=== PATIENT | female | born 1945 | race Asian ===

== ENCOUNTER 2017-10-13 08:04 | Emergency (ER) | payer OTHER ==
[~2017-10-13] VITALS: Ht 160 cm; Wt 69.5 kg
[2017-10-13 09:24] LABS: BASOPHILS # (AUTO) 0.03 K/uL (0.00-0.20); BASOPHILS % (AUTO) 0.4 % (0.0-2.0); EOSINOPHILS # (AUTO) 0.03 K/uL (0.00-0.70); EOSINOPHILS % (AUTO) 0.44 % (1.0-6.0); HEMATOCRIT 31.2 % (36-46); HEMOGLOBIN 10.3 g/dL (12.0-16.0); LYMPHOCYTES # (AUTO) 1.6 K/uL (1.0-4.8); LYMPHOCYTES % (AUTO) 20.8 % (22.0-44.0); MEAN CORPUSCULAR HEMOGLOBIN 29.6 pg (26.0-34.0); MEAN CORPUSCULAR VOLUME 90 fL (80-100); MONOCYTES # (AUTO) 0.3 K/uL (0.1-1.0); MONOCYTES % (AUTO) 3.2 % (2.0-9.0); NEUTROPHILS # (AUTO) 5.8 K/uL (1.8-7.7); NEUTROPHILS % (AUTO) 75.1 % (40.0-70.0); PLATELET COUNT (AUTO) 290 K/uL (150-450); RED BLOOD CELL COUNT(AUTO) 3.47 MIL/uL (4.00-5.20); RED CELL DISTRIBUTION WIDTH 15.5 % (11.5-14.5)
[2017-10-13 09:35] LABS: PROTHROMBIN TIME 10.6 SEC (9.4-11.6)
[2017-10-13 09:41] LABS: APPEARANCE,URINE CLEAR (CLEAR); BILIRUBIN,URINE NEGATIVE (NEGATIVE); GLUCOSE, URINE (UA) NEGATIVE (NEGATIVE); KETONES,URINE NEGATIVE (NEGATIVE); LEUKOCYTE ESTERASE ,URINE NEGATIVE (NEGATIVE); NITRATE,URINE NEGATIVE (NEGATIVE); OCCULT BLOOD,URINE SMALL (NEGATIVE); PROTEIN,URINE TRACE (NEGATIVE); UROBILINOGEN,URINE 0.2 mg/dL (<=1.0)
[2017-10-13 09:42] LABS: ANION GAP 6 mmol/L (8-16); CALCIUM, TOTAL 8.9 mg/dL (8.8-10.5); CARBON DIOXIDE 26 mmol/L (22-29); CHLORIDE 101 mmol/L (98-107); CREATININE 1.45 mg/dL (0.60-1.30); GLOMERULAR FILTR. RATE CALC 35 mL/min (>60); GLUCOSE,RANDOM 128 mg/dL (70-110); POTASSIUM 3.5 mmol/L (3.5-5.1); SODIUM SERUM 133 mmol/L (136-145); UREA NITROGEN, BLOOD 23 mg/dL (7-18)
[2017-10-13 09:53] LABS: B-TYPE NATRIURETIC PEPTIDE 45 pg/mL (0-100)
[2017-10-13 10:09] LABS: ALANINE AMINOTRANSFERASE 13 U/L (12-78); ALBUMIN 3.3 g/dL (3.4-5.0); ALKALINE PHOSPHATASE 75 U/L (46-116); ASPARTATE AMINOTRANSFERASE 15 U/L (15-37); BILIRUBIN,TOTAL 0.2 mg/dL (0.1-1.0); CREATINE KINASE MB 0.7 ng/mL (0-5); CREATINE KINASE, TOTAL 80 U/L (26-192); TOTAL PROTEIN, SERUM 10.1 g/dL (6.4-8.2)
[2017-10-13] MEDS ORDERED: SODIUM CHLORIDE 0.9% 1,000 ML IV ONE (10:15)
[2017-10-13 10:19] LABS: BACTERIA,URINE None Seen /HPF (None Seen); SQUAMOUS EPITHELIAL CELL,UR Few /LPF (None Seen); WBC,URINE 0-2 /HPF (0-5)
[2017-10-13 11:43] VITALS: BP 136/56
== END 2017-10-13 12:17 | disposition home or self-care (01) ==
LOC: EMS 08:06
DX: R42 Dizziness and giddiness (principal); R11.0 Nausea
CPT/HCPCS: 36415; 71045; 76700; 80053; 81001; 82550; 82553; 83880; 84484; 85025; 85610; 85730; 93005; 96360; 96361; 99285; J7030

== ENCOUNTER 2024-10-14 15:30 | Emergency (ER) | payer MEDICAID, OTHER ==
[~2024-10-14] VITALS: Ht 160 cm; Wt 65.0 kg
[2024-10-14 15:34] VITALS: BP 157/63; PULSE 96; RESP 18; TEMP 98.7; O2SAT 98
[2024-10-14] MEDS ORDERED: FERR-89 PO (15:42)
[2024-10-14] MEDS ORDERED: LOSA100T59 PO (15:42)
[2024-10-14] MEDS ORDERED: ATOR10TA69 PO (15:42)
[2024-10-14] MEDS ORDERED: METO-408 PO (15:42)
[2024-10-14] MEDS ORDERED: AMLO10TA55 PO (15:42)
[2024-10-14] MEDS ORDERED: ALLO100T PO (15:42)
[2024-10-15] MEDS ORDERED: VALA500T PO (15:03)
[2024-10-15] MEDS ORDERED: ACET-2080 PO (15:03)
[2024-10-15] MEDS ORDERED: PRED-554 PO (15:03)
[2024-10-15] MEDS ORDERED: BACI3.5O4 OU (15:03)
== END 2024-10-14 19:30 | disposition left against medical advice (07) ==
LOC: EMS 15:30
DX: R21 Rash and other nonspecific skin eruption (principal); Z53.21 Procedure and treatment not carried out due to patient leaving prior to being seen by health care provider

== ENCOUNTER 2024-10-15 12:59 | Emergency (ER) | payer MEDICARE, MEDICAID ==
[~2024-10-15] VITALS: Ht 152.4 cm; Wt 61.4 kg
[~2024-10-15 12:59] MED LIST: ALLO100T PO; AMLO10TA55 PO; ATOR10TA69 PO; FERR-89 PO; LOSA100T59 PO; METO-408 PO
[2024-10-15 13:10] VITALS: BP 117/70; PULSE 80; RESP 18; TEMP 98.1; O2SAT 99
[2024-10-15] MEDS ORDERED: BACI3.5O4 OU (15:03)
[2024-10-15] MEDS ORDERED: PRED-554 PO (15:03)
[2024-10-15] MEDS ORDERED: ACET-2080 PO (15:03)
[2024-10-15] MEDS ORDERED: VALA500T PO (15:03)
[2024-10-15] MEDS: ACETAMINOPHEN/CODEINE 300-30 MG TABLET PO ONE (15:05)
== END 2024-10-15 16:07 | disposition home or self-care (01) ==
LOC: EMS 12:59
DX: B02.9 Zoster without complications (principal); I10 Essential (primary) hypertension; E78.00 Pure hypercholesterolemia, unspecified; M10.9 Gout, unspecified
CPT/HCPCS: 99283